=== PATIENT | male | born 1970 | race Caucasian/White ===

== ENCOUNTER 2018-08-24 09:11 | Observation (INO) | payer BC ==
--- NOTE | 2018-08-24 09:16 | ERPHSYRPT ---
- History of Present Illness Time Seen by Provider: 08/24/18 09:15 Historian: patient Exam Limitations: no limitations Physician History: 48 y/o white male presents with sharp, stabbing epigastric abd pain with radiation into his back. began last pm. seen by dr. magaña office this am. blood drawn. pt on his way home but could not take the pain. no n/v/d. no prior abd surgeries. on no meds and has nkda. Timing/Duration: yesterday, gradual onset, worse Activities at Onset: none Quality: sharpness, stabbing Abdominal Pain Onset Location: epigastric Pain Radiation: back Severity of Pain-Max: moderate Severity of Pain-Current: moderate Modifying Factors: Improves With: nothing. Worsens With: urinating, vomiting Associated Symptoms: back Previous symptoms: no prior history Allergies/Adverse Reactions: No Known Drug Allergies Allergy (Verified 08/24/18 09:23) Home Medications: No Reportable Medications [No Reported Medications] 08/24/18 [History] Omeprazole 20 mg PO DAILY 08/24/18 [History] Testosterone Cypionate 200 mg IM DAILY 08/24/18 [History] - Review of Systems Constitutional: No Symptoms Eyes: No Symptoms Ears, Nose, & Throat: No Symptoms Respiratory: No Symptoms Cardiac: No Symptoms Abdominal/Gastrointestinal: Abdominal Pain (epigastric), No Nausea, No Vomiting , No Diarrhea Genitourinary Symptoms: No Symptoms Musculoskeletal: No Symptoms Skin: No Symptoms Neurological: No Symptoms Psychological: No Symptoms Endocrine: No Symptoms Hematologic/Lymphatic: No Symptoms Immunological/Allergic: No Symptoms All Other Systems: Reviewed and Negative - Past Medical History Pertinent Past Medical History: No Neurological History: No Pertinent History ENT History: No Pertinent History Cardiac History: No Pertinent History Respiratory History: No Pertinent History Endocrine Medical History: No Pertinent History Musculoskeletal History: No Pertinent History GI Medical History: No Pertinent History History: No Pertinent History Psycho-Social History: No Pertinent History Male Reproductive Disorders: No Pertinent History - Past Surgical History Neuro Surgical History: No Pertinent History Cardiac: No Pertinent History Respiratory: No Pertinent History Gastrointestinal: No Pertinent History Genitourinary: No Pertinent History Musculoskeletal: No Pertinent History Male Surgical History: No Pertinent History - Nursing Vital Signs Nursing Vital Signs: Initial Vital Signs Temperature 97.5 F 08/24/18 09:14 Pulse Rate 86 08/24/18 09:14 Respiratory Rate 16 08/24/18 09:14 Blood Pressure 173/113 08/24/18 09:14 O2 Sat by Pulse Oximetry 97 08/24/18 09:14 Pain Scale Pain Intensity 6 - Physical Exam General Appearance: mild distress, alert, anxiety, obese Eye Exam: PERRL/EOMI Ears, Nose, Throat Exam: normal ENT inspection, moist mucous membranes Neck Exam: normal inspection, non-tender, supple, full range of motion Respiratory Exam: normal breath sounds, lungs clear, airway intact, No chest tenderness, No respiratory distress Cardiovascular Exam: regular rate/rhythm, normal heart sounds, normal peripheral pulses Gastrointestinal/Abdomen Exam: soft, normal bowel sounds, tenderness, guarding, No rebound Rectal Exam: not done Back Exam: normal inspection, normal range of motion, No CVA tenderness, No vertebral tenderness Extremity Exam: normal inspection, normal range of motion, pelvis stable Neurologic Exam: alert, oriented x 3, cooperative, guest services ambassador II-XII nml as tested Skin Exam: normal color, warm, dry Lymphatic Exam: No adenopathy SpO2 Interpretation: normal O2 Delivery: Room Air - Course Nursing assessment & vital signs reviewed: Yes EKG Interpreted by Me: RATE (70), Sinus Rhythm, NORMAL AXIS, NORMAL INTERVALS, NORMAL ST-T, Other (axis-s1/s3 pattern; no comparison ekg) Ordered Tests: Active Orders 24 hr Category Date Time Status Clean Catch Urine Specimen STAT Care 08/24/18 09:19 Active EKG-ER Only STAT Care 08/24/18 09:19 Active IV Insertion STAT Care 08/24/18 09:19 Active ABDOMEN AND PELVIS W/0 CONTRAS [CT] Stat Exams 08/24/18 09:20 Completed GALLBLADDER [US] Stat Exams 08/24/18 10:40 Completed Lactic Acid Stat Lab 08/24/18 09:25 Completed TROPONIN Q3H Lab 08/24/18 09:30 Completed TROPONIN Q3H Lab 08/24/18 12:30 Ordered TROPONIN Q3H Lab 08/24/18 15:30 Ordered TROPONIN Q3H Lab 08/24/18 18:30 Ordered TROPONIN Q3H Lab 08/24/18 21:30 Ordered UA W/RFX UR CULTURE Stat Lab 08/24/18 09:59 Completed Medication Summary Discontinued Medications Generic Name Dose Route Start Last Admin Trade Name Freq PRN Reason Stop Dose Admin Al Hydrox/Mg Hydrox/Simethicone Confirm 08/24/18 09:41 Maalox Es 30 Ml Unit Dose Administered 08/24/18 09:42 Dose 30 ml .ROUTE .STK-MED ONE Hydromorphone HCl 1 mg 08/24/18 09:19 08/24/18 09:53 Hydromorphone 1 Mg/Ml Ampule IV 08/24/18 09:20 1 mg STAT ONE Administration Hydromorphone HCl Confirm 08/24/18 09:53 Hydromorphone 1 Mg/Ml Ampule Administered 08/24/18 09:54 Dose 1 mg .ROUTE .STK-MED ONE Sodium Chloride 1,000 mls @ 999 mls/hr 08/24/18 09:19 08/24/18 09:54 Sodium Chloride 0.9% 1000 Ml IV 08/24/18 10:19 999 mls/hr .Q1H1M STA Administration Sodium Chloride Confirm 08/24/18 09:41 Sodium Chloride 0.9% 1000 Ml Administered 08/24/18 09:42 Dose 1,000 mls @ ud .ROUTE .STK-MED ONE Sodium Chloride Confirm 08/24/18 09:47 Sodium Chloride 0.9% 1000 Ml Administered 08/24/18 09:48 Dose 1,000 mls @ ud .ROUTE .STK-MED ONE Lidocaine HCl Confirm 08/24/18 09:41 Xylocaine Hcl Viscous * Administered 08/24/18 09:42 Dose 15 ml .ROUTE .STK-MED ONE Magnesium Hydroxide 45 ml 08/24/18 09:28 08/24/18 09:54 Gi Cocktail 45 Ml (Maalox/Lidocaine) PO 08/24/18 09:29 45 ml STAT ONE Administration Ondansetron HCl 4 mg 08/24/18 09:19 08/24/18 09:54 Zofran 4 Mg/2 Ml Vial IV 08/24/18 09:20 4 mg STAT ONE Administration Ondansetron HCl Confirm 08/24/18 09:40 Zofran 4 Mg/2 Ml Vial Administered 08/24/18 09:41 Dose 4 mg .ROUTE .STK-MED ONE Lab/Rad Data: Laboratory Results 08/24/18 08/24/18 08/24/18 Range/Units 09:59 09:30 09:25 Lactic Acid 1.6 (0.4-2.0) Troponin I < 0.012 (0.000-0.034) ng/mL Urine Color YELLOW (YELLOW) Urine Appearance CLEAR (CLEAR) Urine pH 8.0 (5-6) Ur Specific [place] 1.015 (1.005-1.025) Urine Protein NEGATIVE (Negative) Urine Ketones NEGATIVE (NEGATIVE) Urine Blood NEGATIVE (0-5) Sandor/ul Urine Nitrite NEGATIVE (NEGATIVE) Urine Bilirubin NEGATIVE (NEGATIVE) Urine Urobilinogen NEGATIVE (0-1) mg/dL Ur Leukocyte Esterase NEGATIVE (NEGATIVE) Urine WBC (Auto) NONE (0-5) /HPF Urine RBC (Auto) NONE (0-2) /HPF U Epithel Cells (Auto) NONE (FEW) /HPF Urine Bacteria (Auto) NONE (NEGATIVE) /HPF Urine Mucus (Auto) SLIGHT (NEGATIVE) /HPF Urine Culture Reflexed NO (NO) Urine Glucose NEGATIVE (NEGATIVE) mg/dL - Progress Progress: improved, pain not gone completely, re-examined Progress Note: 08/24/18 11:26 ct abd/pelvis-distended gb with large gallstone. gallbladder u/s recommended 08/24/18 11:40 gallbladder u/s-acute cholecystitis with cholelithiasis spoke with dr. irene. i reviewed pt hx, condition, lab and xray results with him. he accepts pt for placement in obs. we consulted dr. wheeler-general surgeon. spoke with rn. he was in surgery. Discussed with : Collin Counseled pt/family regarding: lab results, diagnosis, need for follow-up, rad results - Departure Time of Disposition: 11:44 Departure Disposition: Observation Clinical Impression: Acute cholecystitis, Cholelithiasis Condition: Stable Critical Care Time: No Referrals: JADEN IRENE [Primary Care Provider] -
[2018-08-24] MEDS ORDERED: Sodium Chloride 0.9% 1000 ML 1,000 ML IV STA (09:19)
[2018-08-24] MEDS ORDERED: Zofran 4 MG/2 ML VIAL IV ONE ×2 (09:19→13:17)
[2018-08-24] MEDS ORDERED: Hydromorphone 1 mg/ml Ampule IV ONE (09:19)
[2018-08-24] MEDS ORDERED: GI COCKTAIL 45 ML (Maalox/Lidocaine) PO ONE (09:28)
[2018-08-24] MEDS ORDERED: Zofran 4 MG/2 ML VIAL ONE ×2 (09:40→15:29)
[2018-08-24] MEDS ORDERED: XYLOCAINE HCl Viscous ONE (09:41)
[2018-08-24] MEDS ORDERED: MAALOX ES 30 ML UNIT DOSE ONE (09:41)
[2018-08-24] MEDS ORDERED: Sodium Chloride 0.9% 1000 ML 1,000 ML ONE ×2 (09:41→09:47)
[2018-08-24] MEDS ORDERED: Hydromorphone 1 mg/ml Ampule ONE (09:53)
[2018-08-24 10:13] LABS: Appearance CLEAR (CLEAR); Bilirubin NEGATIVE (NEGATIVE); Blood NEGATIVE Ery/ul (0-5); Glucose NEGATIVE (NEGATIVE); Ketones NEGATIVE (NEGATIVE); Leukocyte Esterase NEGATIVE (NEGATIVE); Mucus SLIGHT /HPF (NEGATIVE); Nitrite NEGATIVE (NEGATIVE); Protein,Urine Dip NEGATIVE (Negative); Specific Gravity 1.015 (1.005-1.025); Urobilinogen NEGATIVE mg/dL (0-1)
--- NOTE | 2018-08-24 10:32 | XRAY ---
Indication: Epigastric pain. Multiple contiguous axial images obtained through the abdomen and pelvis without contrast as ordered. Comparison: None Lung bases are clear. Heart is not enlarged. Noncontrasted stomach and bowel loops appear nonobstructed. Normal appendix. Distended gallbladder with 4.2 cm gallstone. Query gallbladder wall thickening. No intrahepatic biliary distention. Remaining liver, pancreas, spleen, adrenal glands, kidneys, ureters, bladder, and aorta appear unremarkable for noncontrast exam. Osseous structures intact with L5-S1 fusion with intact bilateral posterior hardware and intervertebral spacers. No ventral or inguinal hernias. Impression: 1. Distended gallbladder with large gallstone. Query gallbladder wall thickening. Gallbladder sonogram may yield further information. 2. Remaining CT abdomen/pelvis without contrast exam is negative. CT DI 23.68
--- NOTE | 2018-08-24 11:35 | XRAY ---
Indication: Epigastric pain. Gallstone on same-day CT. Two-dimensional gallbladder sonogram performed. Comparison: None Gallbladder is mildly distended with 5.3 cm gallstone, 3.6 mm gallbladder wall thickening, and tiny pericholecystic fluid favoring acute cholecystitis. Common bile duct measures 5.2 mm. Remaining visualized portions of the liver, pancreas, and right kidney appear sonographically unremarkable. Right kidney measures 12.9 cm in length. Impression: Cholelithiasis with sonographic features favoring acute cholecystitis.
[2018-08-24] MEDS ORDERED: Zosyn 3.375GM/100 Ml D5W 3.375 GM/100 ML IVPB IV ONE (11:54)
[2018-08-24] MEDS ORDERED: Zosyn 3.375GM/100 Ml D5W 3.375 GM/100 ML IVPB IV STA (12:07)
[2018-08-24] MEDS ORDERED: PROTONIX 40 MG IV IV ONE ×2 (12:40→12:42)
[2018-08-24] MEDS ORDERED: Lactated Ringers 1,000 ML IV ONE ×2 (12:54→14:07)
[2018-08-24] MEDS ORDERED: Lactated Ringers 1,000 ML IV SCH (13:00)
[2018-08-24] MEDS ORDERED: MEFOXIN 2 GM PREMIX** 2 GM/50 ML ML IV SCH (13:00)
[2018-08-24] MEDS ORDERED: DIPRIVAN 200 MG/20 ML IV ONE (13:17)
[2018-08-24] MEDS ORDERED: Zemuron 100 MG/10 ML IV ONE (13:17)
[2018-08-24] MEDS ORDERED: SUBLIMAZE 100 MCG/2 ML IV ONE (13:17)
[2018-08-24] MEDS ORDERED: BRIDION 200MG/2ML IV ONE (13:17)
[2018-08-24] MEDS ORDERED: Versed 2 MG/2 ML Injection IV ONE (13:17)
[2018-08-24] MEDS ORDERED: DILAUDID 2 MG INJECTION IV ONE (13:17)
[2018-08-24] MEDS ORDERED: Sensorcaine 0.25% 10 ML ONE (13:31)
--- NOTE | 2018-08-24 14:50 | CONS ---
CONSULT DATE: 08/24/2018 This patient is seen for Dr. Wild Aguillon who is surgical appliances salesperson for our group today. HISTORY: The patient is a 48 year-old gentleman who since 2300 hours last night had epigastric right upper quadrant pain radiating to his back associated with some nausea. He had similar attack two weeks ago and then reoccurred last night. He denies any change in bowel movements. PAST MEDICAL HISTORY: He denied any chronic illnesses. PAST SURGICAL HISTORY: Back surgery in the past. MEDICATIONS: Testosterone injections every couple of weeks or so. ALLERGIES: NKDA. FAMILY HISTORY: Heart disease. SOCIAL HISTORY: He denies smoking. He does drink some alcohol on occasion. He denied abuse. REVIEW OF SYSTEMS: Twelve systems reviewed per admission assessment, other systems negative or noncontributory as above and per preadmission questionnaire. LAB DATA AND TESTS: His liver function test and lipase were okay. White blood cell count was 9. He denied any bleeding issues. PHYSICAL EXAMINATION: GENERAL: A somewhat uncomfortable 48 year-old gentleman a little bit over weight. HEENT: Sclera nonicteric. NECK: No JVD. CHEST: Equal excursion, nonlabored breathing. CVS: Regular rhythm and pulse. ABDOMEN: Soft, some tenderness in in right upper quadrant. No rebound currently. EXTREMITIES: No edema. NEURO: Alert, moving extremities grossly symmetrically. IMPRESSION: Symptomatic cholelithiasis, probable chronic cholecystitis with acute exacerbation. He had ultrasound showed up to 5 cm stone. Bile duct is not dilated. He had a little bit of wall thickening, a little bit of pericholecystic fluid on CT scan and ultrasound. I did not see any other obvious findings or other etiology. I feel the patient will benefit from cholecystectomy. Risks and benefits explained in detail including but not limited to bleeding or infection, risk of trocar injury or hernia, small risk of bile leak, bile duct injury, retained stone or sludge possibly requiring further procedure either open or ERCP, general risk of anesthesia, deep venous thrombosis, pulmonary embolism, pneumonia, perioperative risk of aches, pains, bloating, constipation and/or loose stools possibly chronic in nature, possibility the procedure may not improve his symptoms. He may need further work up and/or testing, endoscopy, other studies or procedures. He also understands the possibility given large stone there is higher probability of needing open procedure or at least needing a larger incision to remove the gallstone and gallbladder. We discussed all the above but not limited to, will proceed with laparoscopic cholecystectomy with possible open when OR time available. Again, this patient is seen for Dr. Wild Aguillon who was tied up in [place]. If the OR has time now will proceed.
[2018-08-24] MEDS ORDERED: DILAUDID 2 MG INJECTION ONE (14:58)
--- NOTE | 2018-08-24 15:59 | OP ---
SURGERY DATE/TIME: 08/24/2018 1312 PREOPERATIVE DIAGNOSIS: Symptomatic cholelithiasis, acute exacerbation of chronic cholecystitis. POSTOPERATIVE DIAGNOSIS: Symptomatic cholelithiasis, acute exacerbation of chronic cholecystitis. PROCEDURE: Laparoscopic cholecystectomy. SURGEON: Dr. David Pfeiffer. ANESTHESIA: General. ESTIMATED BLOOD LOSS: Minimal. INDICATIONS: As noted above. Risks and benefits explained in detail but not limited to and consent obtained. DESCRIPTION OF PROCEDURE AND FINDINGS: The patient was taken to the OR. General anesthesia induced. Abdomen prepped and draped in the usual sterile fashion. After official time out and no disagreement with planned procedure, a transverse incision made at the supraumbilical area. Fascia grasped and pulled upward. Veress needle inserted and tested with saline. Pneumoperitoneum accomplished insufflating opening pressure of 0-15. A 5 mm bladeless port and camera inserted without difficulty followed by two - 5 mm right upper quadrant ports and 11 mm epigastric port this was later switched to 12 mm port. He had extensive omental adhesions over the top of the gallbladder. These were taken down from posterior lateral to anterior fashion. The gallbladder was quite distended and edematous, thick walled. We were initially going to decompress it but it was just mobile enough that the gallbladder grasped and retracted upwards. Dissection carried posterior, lateral to anterior fashion. The cystic artery was isolated directly on the gallbladder wall, clipped x3 and divided in usual fashion. Additional oozing side branches were clipped as necessary. The cystic duct infundibulum was well skeletonized until the critical view obtained both anteriorly and posteriorly. There was extensive inflammatory reaction. It was felt it would be more secure closure with large clipper. The large clipper was used. The cystic duct stump site with the EndoG[employer] stapler fired across the infundibular site providing secure closure of the stump. Gallbladder slowly and carefully dissected free from its dense edematous and vascular attachments to the liver bed. It took some time given the extensive inflammatory reaction but slowly and carefully accomplished. Just prior to releasing from final attachments to the anterior edge of the liver, the liver bed re-inspected. Clips noted in place in cystic duct and cystic artery stumps. There is no sign of any active bleeding or bowel leakage. It was felt there was no benefit from drain placement. Gallbladder released from final attachments to the anterior edge of liver. It was pulled up to the epigastrium. It was necessary to enlarge the skin incision, enlarge the fascial defects slightly. There was a 5 cm elongated stone in the gallbladder that is quite distended. The gallbladder was able to be pulled up to the edge of the skin. It was opened, decompressed of some bile and using a combination of Kamlesh clamps slowly and carefully crushed up this very large 5 cm stone and it was finally able to be mobilize the gallbladder without any spillage intra-abdominal. Fascia defect closed with figure-of-8 puncture closure device with #1 Vicryl. Copious amount of irrigation irrigating lateral to the liver and subhepatic space irrigating until clear. Liver bed re-inspected. Clips noted in place in cystic duct and cystic artery stumps. There were no signs of any active bleeding or bile leakage. I felt there was no benefit of drain placement. Pneumoperitoneum decompressed. The wound was irrigated out. Again the fascial 12 mm port site in the epigastrium area that had been slightly enlarged with a clamp was closed with figure-of-8 #1 Vicryl. Wound irrigated out. Skin incision closed with 4-0 Vicryl. Steri-Strips and sterile dressing applied. 0.25% Marcaine local injected along the skin incision fascial defect at the beginning of the procedure. There were no immediate complications. I will see if there is any family to discuss the findings with. Otherwise he will be transferred to recovery in stable condition. The patient was seen for Dr. Aguillon who was board of education secretary for our group today as he was tied up in [place] and went ahead and proceeded with the case.
[2018-08-24] MEDS ORDERED: NORCO 5/325 MG PO PRN (16:21)
[2018-08-24] MEDS ORDERED: MORPHINE SULFATE 4 MG INJ IV PRN (16:22)
[2018-08-24] MEDS ORDERED: Zofran 4 MG/2 ML VIAL IV PRN (16:23)
[2018-08-24] MEDS ORDERED: Protonix 40MG Tablet PO PRN (16:50)
[2018-08-24] MEDS ORDERED: MEDICATION INTERVENTION MC SCH (17:00)
[2018-08-25 04:03] VITALS: PULSE 94; O2SAT 92
[2018-08-25] MEDS ORDERED: TYLENOL 325 MG PO PRN (07:28)
[2018-08-25 07:44] VITALS: BP 141/81
--- NOTE | 2018-08-25 10:36 | SSS ---
DISCHARGE DIAGNOSIS: CHOLECYSTTIS AND CHOLELITHAISIS. PROCEDURE: Cholecystectomy by surgeon, Dr. David Pfeiffer [facility] COURSE: The patient is a 48 year-old white male patient admitted with problems with intermittent abdominal pain mostly epigastric in location. He saw me in the office in the medical reimbursement specialist of 08/24/2018 with moderate to severe abdominal pain. We sent him over to the lab for laboratory evaluation which appeared to be fairly normal. However his pain was not improving and he just felt like he needed to be seen. He went to the emergency room where CT scan was performed which did show evidence of acute cholecystitis. The patient was admitted to the hospital where surgery performed by Dr. Pfeiffer and by the next morning the patient was feeling much better. He was afebrile with stable vital signs and was felt ready for discharge home after he proved that he could take a meal and tolerate it. He has [place] on discharge medication for PRN use and he will follow up with the surgeon in one week. PHYSICAL EXAMINATION: Revealed a well-nourished, well-developed 48 year-old white male patient who initially was in moderate to severe distress due to his epigastric pain. His vital signs initially showed temperature 97.5F, pulse 86, respiratory rate 16, blood pressure 173/113. O2 saturations 97% on room air. HEENT: Normocephalic, atraumatic. Pupils equal round reactive to light. Extraocular movements intact. Oropharynx is dry. NECK: Supple without lymphadenopathy, thyromegaly or JVD. CHEST: Clear to auscultation with good air movement bilaterally. HEART: Regular rate and rhythm without murmurs, rubs or gallops. ABDOMEN: Revealed the tenderness in the epigastric region as well as the right upper quadrant. There is no guarding or rebound present. EXTREMITIES: Without cyanosis, clubbing or edema. NEUROLOGIC: The patient is alert and oriented x3. No focal deficits were noted. LAB DATA AND TESTS: His CT scan did show cholelithiasis with sonographic features favoring acute cholecystitis. CT scan was likewise concerning for cholecystitis. The patient's laboratory studies showed a normal UA. Troponin less than 0.012. Again, the patient is now ready for discharge home with instructions to follow up with the surgeon in one week.
[2018-08-29] MEDS ORDERED: DEPO-TESTOSTERONE IM SCH (16:45)
== END 2018-08-25 08:55 | disposition home or self-care (01) ==
LOC: ED 09:11 → MED SURG 13:16
PROVIDERS: ADMIT Family Medicine; ATTEND Family Medicine
DX: K80.00 Calculus of gallbladder with acute cholecystitis without obstruction (principal); Z79.899 Other long term (current) drug therapy
CPT/HCPCS: 36000; 36415; 47562; 74176; 76705; 80053; 81001; 82150; 83605; 83690; 84484; 85025; 93005; 96360; 96374; 96375; 99285; G0378; 88304; J0694; J1170; J2250; J2270; J2405; J2543; J2704; J3010; A9270-GY

== ENCOUNTER 2019-06-20 09:50 | Emergency (ER) | payer BC ==
--- NOTE | 2019-06-20 10:18 | ERPHSYRPT ---
- History of Present Illness Time Seen by Provider: 06/20/19 10:16 Source: patient, family Exam Limitations: no limitations Patient Subjective Stated Complaint: Pt c/o of congestion, cough, tightness in chest since Triage Nursing Assessment: Pt brought into the ER by his , hypertensive, skin is flushed but he is afebrile, pulses normal, lungs clear, denies pain, denies N&V Physician History: Pt c/o of congestion, cough, tightness in chest since Timing/Duration: day(s) (3 days) Cough Quality/Degree: dry cough Associated Symptoms: fever, chills, cough, sore throat International travel in last 2 weeks: No Allergies/Adverse Reactions: No Known Drug Allergies Allergy (Verified 06/20/19 10:02) Home Medications: Testosterone Cypionate 200 mg IM UD 08/24/18 [History] Hx Tetanus, Diphtheria Vaccination/Date Given: Yes Hx Influenza Vaccination/Date Given: Yes Hx Pneumococcal Vaccination/Date Given: No - Review of Systems Constitutional: No Fever, No Chills Eyes: No Symptoms Ears, Nose, & Throat: Throat Pain Respiratory: Cough, No Dyspnea Cardiac: No Chest Pain, No Edema, No Syncope Abdominal/Gastrointestinal: No Abdominal Pain, No Nausea, No Vomiting, No Diarrhea Genitourinary Symptoms: No Dysuria Musculoskeletal: No Back Pain, No Neck Pain Skin: No Rash Neurological: No Dizziness, No Focal Weakness, No Sensory Changes Psychological: No Symptoms Endocrine: No Symptoms All Other Systems: Reviewed and Negative - Past Medical History Pertinent Past Medical History: No Neurological History: No Pertinent History ENT History: No Pertinent History Cardiac History: No Pertinent History Respiratory History: No Pertinent History Endocrine Medical History: No Pertinent History Musculoskeletal History: No Pertinent History GI Medical History: No Pertinent History History: No Pertinent History Psycho-Social History: No Pertinent History Male Reproductive Disorders: No Pertinent History - Past Surgical History Past Surgical History: Yes Neuro Surgical History: No Pertinent History Cardiac: No Pertinent History Respiratory: No Pertinent History Gastrointestinal: Cholecystectomy Genitourinary: No Pertinent History Musculoskeletal: Other Male Surgical History: Vasectomy Other Surgical History: back - Social History Smoking Status: Never smoker Exposure to second hand smoke: No Drug Use: none Patient Lives Alone: No - Nursing Vital Signs Nursing Vital Signs: Initial Vital Signs Temperature 98.8 F 06/20/19 09:53 Pulse Rate 90 06/20/19 09:53 Blood Pressure 145/101 06/20/19 09:53 O2 Sat by Pulse Oximetry 94 L 06/20/19 09:53 Pain Scale Pain Intensity 0 - Physical Exam General Appearance: no apparent distress, alert Eye Exam: PERRL/EOMI, eyes nml inspection Ears, Nose, Throat Exam: normal ENT inspection, TMs normal, moist mucous membranes, pharyngeal erythema Neck Exam: normal inspection, non-tender, supple, full range of motion Respiratory Exam: normal breath sounds, lungs clear, No respiratory distress Cardiovascular Exam: regular rate/rhythm, normal heart sounds Gastrointestinal/Abdomen Exam: soft, No tenderness Back Exam: normal inspection, No CVA tenderness, No vertebral tenderness Extremity Exam: normal inspection, normal range of motion Neurologic Exam: alert, oriented x 3, cooperative, normal mood/affect, sensation nml, No motor deficits Skin Exam: normal color, warm, dry, No rash Lymphatic Exam: No adenopathy SpO2: 94 - Course Nursing assessment & vital signs reviewed: Yes - Radiology Exams Chest X-ray Interpretation: Reviewed by me, Negative Ordered Tests: Active Orders 24 hr Category Date Time Status CHEST 2 VIEWS (PA AND LAT) Stat Exams 06/20/19 10:01 Taken BMP Stat Lab 06/20/19 10:15 Completed CBC W DIFF Stat Lab 06/20/19 10:15 Completed Lab/Rad Data: Laboratory Result Diagrams 06/20/19 10:15 06/20/19 10:15 Laboratory Results 06/20/19 06/20/19 06/20/19 Range/Units 10:17 10:15 10:15 WBC 5.6 (4.0-10.5) K/mm3 RBC 5.21 (4.1-5.6) M/mm3 Hgb 15.9 (12.5-18.0) gm/dl Hct 47.0 (42-50) % MCV 90.2 (78-100) fl MCH 30.5 (26-32) pg MCHC 33.8 (32-36) g/dl RDW 13.9 (11.5-14.0) % Plt Count 141 L (150-450) K/mm3 MPV 8.5 (6-9.5) fl Gran % 73.1 H (36.0-66.0) % Eos # (Auto) 0.17 (0-0.5) Absolute Lymphs (auto) 0.75 L (1.0-4.6) Absolute Monos (auto) 0.56 (0.0-1.3) Lymphocytes % 13.5 L (24.0-44.0) % Monocytes % 10.1 (0.0-12.0) % Eosinophils % 3.1 (0.00-5.0) % Basophils % 0.2 (0.0-0.4) % Absolute Granulocytes 4.06 (1.4-6.9) Basophils # 0.01 (0-0.4) Sodium 138 (137-145) mmol/L Potassium 4.0 (3.5-5.1) mmol/L Chloride 100 (98-107) mmol/L Carbon Dioxide 33 H (22-30) mmol/L Anion Gap 9.5 (5-15) MEQ/L BUN 10 (9-20) mg/dL Creatinine 1.12 (0.66-1.25) mg/dL Estimated GFR > 60.0 ML/MIN Glucose 108 H (74-106) mg/dL Calcium 9.2 (8.4-10.2) mg/dL Influenza Type A Ag NEGATIVE (NEGATIVE) Influenza Type B Ag NEGATIVE (NEGATIVE) RSV (PCR) NEGATIVE (Negative) - Progress Progress: unchanged Counseled pt/family regarding: lab results, diagnosis, need for follow-up, rad results - Departure Departure Disposition: Home Clinical Impression: Bronchitis Condition: Stable Critical Care Time: No Referrals: JADEN US [Primary Care Provider] - Instructions: Cough, Adult (DC), Acute Bronchitis, Adult (DC) Additional Instructions: Discharge/Care Plan GRIFFIN VAZQUEZ was seen on 06/20/19 in the Emergency Room. The patient was counseled regarding Diagnosis,Lab results, Imaging studies, need for follow up and when to return to the Emergency Room. Prescriptions given: Discharge Note I have spoken with the patient and/or caregivers. I have explained the patient' s condition, diagnosis and treatment plan based on the information available to me at this time. I have answered the patient's and/or caregiver's questions and addressed any concerns. The patient and/or caregivers have as good understanding of the patient's diagnosis, condition and treatment plan as can be expected at this point. The vital signs have been stable. The patient's condition is stable and appropriate for discharge from the emergency department. The patient will pursue further outpatient evaluation with the primary care physician or other designated or consulting physician as outlined in the discharge instructions. The patient and/or caregivers are agreeable to this plan of care and follow-up instructions have been explained in detail. The patient and/or caregivers have received these instruction. The patient/and or caregivers are aware that any significant change in condition or worsening of symptoms should prompt an immediate return to this or the closest emergency department or call 911. GRIFFIN VAZQUEZ was seen on 06/20/19 n the Emergency Room. At that time you were treated for an emergent condition, during your visit Laboratory, Radiology and/ or other procedures may have been ordered. It is very important that you follow- up with your Primary Care Physician JADEN US within the next 24-48 hours to review your Emergency Room visit and the final results of testing that was ordered. Some test results such as Urine Cultures, Blood Cultures, and other cultures if ordered will not be finalized for 24-48 hours. If you do not have a Primary Care Provider please call the medical records department at [phone] ext [phone] to obtain a copy of your results or you may sign into our patient portal to obtain these results by visiting us @ [email or web address] and completing the following steps: 1. Click on the Patient Portal link 2. Click the Patient Self Enrollment Link to complete the enrollment form and entering your 3. Once the enrollment form is completed you will receive an email with a temporary ID and password at the email address you provided. 4. Next choose a user name and password. Your user name must be at least 4 characters long and your password must be at least 4 characters long. 5. Choose a security question from the list and provide your answer to the question. If you already have signed into the Health Portal you may access your Health Care Information 13/01 by the following steps: 1. Login to our website @ [email or web address] 2. Enter your original user name and password. FAQS The [facility] Health Portal is an online tool that contains your Lab Results, Radiology Reports, Visit History, Discharge Instructions and Health Summary Lab and Radiology Results will not be available for 72 hours on the portal. The Portal is a secure site, passwords are encryted and URLs are re-written so they cannot be copied and pasted. You and authorized family members are the only ones who can access your Portal. Also there is a timeout feature that protects your information if you leave the Portal page open. If you have technical difficulty please use the Contact Us link on the page this will allow you to submit any questions you have regarding the Portal or you may contact the Medical Record Department at [phone] ext [phone]. Prescriptions: Smz/Tmp Ds Tablet [Bactrim Ds Tablet] 1 udtab PO BID #20 tablet Guaifenesin/Dextromethorphan [Mucinex Dm ER 600-30 mg Tablet] 1 each PO BID #20 tab.er.[id number]
[2019-06-20 10:32] LABS: Absolute Neutrophil Ct (ANC) 4.06 (1.4-6.9); BASOPHIL % 0.2 % (0.0-0.4); Basophil (Absolute #) 0.01 (0-0.4); Eosinophil % 3.1 % (0.00-5.0); Eosinophil (Absolute #) 0.17 (0-0.5); Hemoglobin 15.9 gm/dl (12.5-18.0); Lymphocyte (Absolute #) 0.75 (1.0-4.6); Lymphocytes % 13.5 % (24.0-44.0); Mean Cell Volume 90.2 fl (78-100); Mean Corpuscular Hemoglobin 30.5 pg (26-32); Mean Corpuscular Hgb Concent. 33.8 g/dl (32-36); Mean Platelet Volume 8.5 fl (6-9.5); Monocyte (Absolute #) 0.56 (0.0-1.3); Monocytes % 10.1 % (0.0-12.0); Neutrophil % 73.1 % (36.0-66.0); Platelet Count 141 K/mm3 (150-450); Red Blood Count 5.21 M/mm3 (4.1-5.6); Red Cell Distribution Width 13.9 % (11.5-14.0); White Blood Count 5.6 K/mm3 (4.0-10.5)
[2019-06-20 10:46] LABS: ANION GAP 9.5 MEQ/L (5-15); BLOOD UREA NITROGEN 10 mg/dL (9-20); CHLORIDE 100 mmol/L (98-107); Calcium 9.2 mg/dL (8.4-10.2); Carbon Dioxide 33 mmol/L (22-30); Creatinine 1 1.12 mg/dL (0.66-1.25); Glucose 108 mg/dL (74-106); SODIUM 138 mmol/L (137-145)
[2019-06-20 10:59] LABS: INFLUENZA A NEGATIVE (NEGATIVE); INFLUENZA B NEGATIVE (NEGATIVE); RESPIRATORY SYNCTIAL VIRUS NEGATIVE (Negative)
[2019-06-20] MEDS ORDERED: Rocephin 1000 MG INJ IM ONE (11:02)
[2019-06-20] MEDS ORDERED: Rocephin 1000 MG INJ ONE (11:15)
[2019-06-20] MEDS ORDERED: XYLOCAINE 1% HCL 20 ML MDV ONE (11:15)
[2019-06-20 11:26] VITALS: BP 127/85; PULSE 82; O2SAT 95
--- NOTE | 2019-06-20 20:14 | XRAY ---
Indication: Fever, cough, and congestion. Comparison: None PA/lateral chest demonstrates minimal right base infiltrate/atelectasis. Remaining heart, lungs, and bony thorax normal.
== END 2019-06-20 11:43 | disposition home or self-care (01) ==
LOC: ED 09:50
DX: J40 Bronchitis, not specified as acute or chronic (principal)
CPT/HCPCS: 36415; 71046; 80048; 85025; 87631; 96372; 99284; J0696

== ENCOUNTER 2020-10-07 20:56 | Emergency (ER) | payer OTHER ==
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
[2020-10-07] MEDS ORDERED: Adacel Vial IM ONE ×2 (21:19→21:38)
[2020-10-07] MEDS ORDERED: BACIGUENT PACKET ONE (21:38)
[2020-10-07] MEDS ORDERED: BACIGUENT PACKET TP ONE (21:39)
[2020-10-07 22:21] VITALS: BP 138/92; PULSE 83; O2SAT 98
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
== END 2020-10-07 22:47 | disposition home or self-care (01) ==
LOC: ED 20:56
DX: S80.211A Abrasion, right knee, initial encounter (principal); V19.9XXA Pedal cyclist (driver) (passenger) injured in unspecified traffic accident, initial encounter; Y92.488 Other paved roadways as the place of occurrence of the external cause; Y93.55 Activity, bike riding; Y99.9 Unspecified external cause status; M25.561 Pain in right knee
CPT/HCPCS: 73560; 73590; 90471; 90715; 99284; A9270-GY